=== PATIENT | female | born 1970 | race Caucasian/White ===

== ENCOUNTER 2018-03-02 10:38 | Emergency (ER) | payer OTHER ==
[2018-03-02] MEDS ORDERED: Sodium Chloride 0.9% 10 ML Syringe FLUSH PRN ×2 (11:13→11:22)
[2018-03-02] MEDS ORDERED: LORazepam 2 MG/ML SDV IVPUSH ONE (11:13)
[2018-03-02] MEDS ORDERED: Sodium Chloride 0.9% 1,000 ML IV ONE ×2 (11:23→11:24)
[2018-03-02] MEDS ORDERED: Ketorolac 15 MG/ML SDV IVPUSH ONE (11:35)
--- NOTE | 2018-03-02 11:43 | EDM.PDOC ---
ED HPI GENERAL MEDICAL PROBLEM - General Chief Complaint: Headache Stated Complaint: INFECTION Time Seen by Provider: 03/02/18 11:27 Source of Information: Reports: Patient, Family () History Limitations: Reports: No Limitations - History of Present Illness INITIAL COMMENTS - FREE TEXT/NARRATIVE: Patient is a 47-year-old female presents ED complaining of gradual onset of generalized headache that has intermittent shooting sharp pains from the right gnosticist across the top of her head. This started approximately one week ago. She had some UTI-like symptoms that resolved. She was seen in the [place] [facility] and had lab work done. She was diagnosed with UTI and placed on oral Cipro. Patient states last night had a temperature of 102 relieved with Tylenol and Motrin. She 's been taking the Tylenol and Motrin regularly in alternating fashion. She complains of some generalized body aches. No painful urination. No hematuria. No chest pain, shortness of breath, sore throat, vision changes, stiff neck, n/t , difficulty walking, or any additional complaints. 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 Currently she is off any pain medications except for Tylenol and Motrin. Pain pump is located in the right lower quadrant currently running saline. She states some of the characteristics of the headache she currently experiencing are similar to the previous episode of bacterial meningitis. Again she has no nuchal rigidity. Past medical history includes: Hypertension, hypothyroid some, COPD, neuropathy , GERD, and fibromyalgia Current medications include: metoprolol, levothyroxine, Advair, gabapentin, PPI , and Savella. Headache Pain Score (Numeric/FACES): 8 - Related Data Allergies Allergy/AdvReac Type Severity Reaction Status Date / Time acetaminophen Allergy Other Verified 08/27/16 07:22 [From Tylenol-Codeine] amitriptyline Allergy Other Verified 08/27/16 07:22 citric acid Allergy Other Verified 08/27/16 07:22 codeine Allergy Other Verified 08/27/16 07:22 [From Tylenol-Codeine] morphine AdvReac Nausea Verified 09/04/14 09:45 Home Meds: Home Meds Fluticasone Propionate [Flovent] 1 - 2 puff IH DAILY 03/02/18 [History] Fluticasone/Salmeterol [Advair 250-50 Diskus] 1 puff INH BID 03/02/18 [History] Gabapentin [Neurontin] 600 mg PO TID 03/02/18 [History] Levofloxacin [Levaquin] 750 mg PO DAILY #5 tab 03/02/18 [Rx] Levothyroxine 75 mcg PO ACBREAKFAST 03/02/18 [History] Metoprolol Succinate [Toprol XL 50mg] 50 mg PO BID 03/02/18 [History] Milnacipran HCl [Savella] 100 mg PO BID 03/02/18 [History] Pantoprazole [ProTONIX] 40 mg PO BID 03/02/18 [History] Past Medical History HEENT History: Reports: Impaired Vision Cardiovascular History: Reports: Hypertension Respiratory History: Reports: Asthma, Bronchitis, Recurrent Gastrointestinal History: Reports: GERD Neurological History: Reports: Migraines Endocrine/Metabolic History: Reports: Hypothyroidism Hematologic History: Reports: Iron Deficiency Other Hematologic History: High platelet count and Vitamin D deficiency - Infectious Disease History Infectious Disease History: Reports: Chicken Pox, Meningitis - Past Surgical History HEENT Surgical History: Reports: Tonsillectomy GI Surgical History: Reports: Cholecystectomy Other Musculoskeletal Surgeries/Procedures:: Foot surgeries- pain pump for foot pain Social & Family History - Family History Family Medical History: Noncontributory ED ROS GENERAL - Review of Systems Review Of Systems: ROS reveals no pertinent complaints other than HPI. - Physical Exam Exam: See Below Exam Limited By: No Limitations General Appearance: Alert, WD/WN, Moderate Distress Eye Exam: Bilateral Eye: EOMI (pain with eomi), Normal Inspection, Nystagmus ( none noted), PERRL, Vision Changes (none noted) Ears: Hearing Grossly Normal Nose: Normal Inspection Throat/Mouth: Normal Voice, No Airway Compromise Head Exam: Atraumatic, Normocephalic Neck: Normal Inspection, Supple, Non-Tender, Full Range of Motion Respiratory/Chest: No Respiratory Distress, Lungs Clear, Normal Breath Sounds, No Accessory Muscle Use, Chest Non-Tender Cardiovascular: Normal Peripheral Pulses, No Murmur, Tachycardia GI/Abdominal: Normal Bowel Sounds, Soft, Non-Tender, No Organomegaly, No Distention, Other (pain pump to the right lower quadrant with no pain present) Neuro Exam (Abbreviated): Alert, Oriented, CN II-XII Intact, Normal Cognition, No Motor/Sensory Deficits, Other (No facial droop, slurred speech, tongue deviation, pronator drift, and or nystagmus. No weakness discrepancies to the upper/lower extremities. Cerebellar fx intact: finger to nose, rapid alternating movements, and heal to levy. ) Back Exam: Normal Inspection Extremities: Normal Inspection, Normal Range of Motion, Non-Tender, No Pedal Edema, Normal Capillary Refill Psychiatric: Normal Affect, Normal Mood Skin Exam: Warm, Dry, Intact, Normal Color, No Rash Course - Vital Signs Last Recorded V/S: Last Vital Signs Temp 98.5 F 03/02/18 15:40 Pulse 92 03/02/18 15:40 Resp 16 03/02/18 15:40 BP 141/96 H 03/02/18 15:40 Pulse Ox 99 03/02/18 15:40 - Orders/Labs/Meds Orders: Active Orders 24 hr Category Date Time Status Peripheral IV Care [RC] . DIRECTED Care 03/02/18 11:13 Inactive Peripheral IV Care [RC] . DIRECTED Care 03/02/18 11:23 Active CULTURE BLOOD [BC] Stat Lab 03/02/18 11:30 Received CULTURE BLOOD [BC] Stat Lab 03/02/18 11:38 Received CULTURE URINE [RM] Stat Lab 03/02/18 12:28 Ordered Blood Culture x2 Reflex Set [OM.PC] Stat Oth 03/02/18 11:54 Ordered Peripheral IV Insertion Adult [OM.PC] Routine Oth 03/02/18 11:22 Ordered Labs: Laboratory Tests 03/02/18 03/02/18 03/02/18 Range/Units 11:30 11:30 11:38 WBC 9.87 (3.98-10.04) K/mm3 RBC 3.49 L (3.98-5.22) M/mm3 Hgb 10.5 L (11.2-15.7) gm/L Hct 31.8 L (34.1-44.9) % MCV 91.1 (79.4-94.8) fl MCH 30.1 (25.6-32.2) pg MCHC 33.0 (32.2-35.5) g/dl RDW Std Deviation 41.9 (36.4-46.3) fL Plt Count 388 H (182-369) K/mm3 MPV 9.5 (9.4-12.3) fl Neutrophils % (Manual) 70 H (40-60) % Band Neutrophils % 1 (0-10) % Lymphocytes % (Manual) 21 (20-40) % Atypical Lymphs % 0 % Monocytes % (Manual) 5 (2-10) % Eosinophils % (Manual) 3 (0.7-5.8) % Basophils % (Manual) 0 L (0.1-1.2) Platelet Estimate Adequate RBC Morph Comment Normal Sodium 139 (136-145) mEq/L Potassium 3.9 (3.5-5.1) mEq/L Chloride 105 (98-107) mEq/L Carbon Dioxide 26 (21-32) mEq/L Anion Gap 11.9 (5-15) BUN 9 (7-18) mg/dL Creatinine 1.0 (0.55-1.02) mg/dL Est Cr Clr Drug Dosing 59.41 mL/min Estimated GFR (MDRD) 59 (>60) mL/min BUN/Creatinine Ratio 9.0 L (14-18) Glucose 102 (74-106) mg/dL Lactic Acid 1.2 (0.4-2.0) mmol/L Calcium 9.4 (8.5-10.1) mg/dL Total Bilirubin 0.5 (0.2-1.0) mg/dL AST 82 H (15-37) U/L ALT 112 H (14-59) U/L Alkaline Phosphatase 312 H (46-116) U/L C-Reactive Protein 26.3 H* (<1.0) mg/dL Total Protein 7.2 (6.4-8.2) g/dl Albumin 2.6 L (3.4-5.0) g/dl Globulin 4.6 gm/dL Albumin/Globulin Ratio 0.6 L (1-2) HCG, Qual (NEGATIVE) Urine Color (Yellow) Urine Appearance (Clear) Urine pH (5.0-8.0) Ur Specific Ryder (1.005-1.030) Urine Protein (Negative) Urine Glucose (UA) (Negative) Urine Ketones (Negative) Urine Occult Blood (Negative) Urine Nitrite (Negative) Urine Bilirubin (Negative) Urine Urobilinogen (0.2-1.0) Ur Leukocyte Esterase (Negative) Urine RBC (0-5) /hpf Urine WBC (0-5) /hpf Ur Epithelial Cells (0-5) /hpf Urine Bacteria (FEW) /hpf Urine Mucus (FEW) /hpf 03/02/18 03/02/18 Range/Units 11:38 12:28 WBC (3.98-10.04) K/mm3 RBC (3.98-5.22) M/mm3 Hgb (11.2-15.7) gm/L Hct (34.1-44.9) % MCV (79.4-94.8) fl MCH (25.6-32.2) pg MCHC (32.2-35.5) g/dl RDW Std Deviation (36.4-46.3) fL Plt Count (182-369) K/mm3 MPV (9.4-12.3) fl Neutrophils % (Manual) (40-60) % Band Neutrophils % (0-10) % Lymphocytes % (Manual) (20-40) % Atypical Lymphs % % Monocytes % (Manual) (2-10) % Eosinophils % (Manual) (0.7-5.8) % Basophils % (Manual) (0.1-1.2) Platelet Estimate RBC Morph Comment Sodium (136-145) mEq/L Potassium (3.5-5.1) mEq/L Chloride (98-107) mEq/L Carbon Dioxide (21-32) mEq/L Anion Gap (5-15) BUN (7-18) mg/dL Creatinine (0.55-1.02) mg/dL Est Cr Clr Drug Dosing mL/min Estimated GFR (MDRD) (>60) mL/min BUN/Creatinine Ratio (14-18) Glucose (74-106) mg/dL Lactic Acid (0.4-2.0) mmol/L Calcium (8.5-10.1) mg/dL Total Bilirubin (0.2-1.0) mg/dL AST (15-37) U/L ALT (14-59) U/L Alkaline Phosphatase (46-116) U/L C-Reactive Protein (<1.0) mg/dL Total Protein (6.4-8.2) g/dl Albumin (3.4-5.0) g/dl Globulin gm/dL Albumin/Globulin Ratio (1-2) HCG, Qual Negative (NEGATIVE) Urine Color Yellow (Yellow) Urine Appearance Clear (Clear) Urine pH 7.0 (5.0-8.0) Ur Specific Ryder 1.015 (1.005-1.030) Urine Protein Negative (Negative) Urine Glucose (UA) Negative (Negative) Urine Ketones Negative (Negative) Urine Occult Blood Trace-lysed H (Negative) Urine Nitrite Negative (Negative) Urine Bilirubin Negative (Negative) Urine Urobilinogen 0.2 (0.2-1.0) Ur Leukocyte Esterase Trace H (Negative) Urine RBC 0-5 (0-5) /hpf Urine WBC 5-10 H (0-5) /hpf Ur Epithelial Cells Not seen (0-5) /hpf Urine Bacteria Few (FEW) /hpf Urine Mucus Not seen (FEW) /hpf Meds: Medications Discontinued Medications Generic Name Dose Route Start Last Admin Trade Name Freq PRN Reason Stop Dose Admin Diphenhydramine HCl 50 mg 03/02/18 14:22 03/02/18 14:33 Benadryl IVPUSH 03/02/18 14:23 50 mg ONETIME ONE Administration Haloperidol Lactate 5 mg 03/02/18 14:22 03/02/18 14:33 Haldol IVPUSH 03/02/18 14:23 5 mg ONETIME ONE Administration Sodium Chloride 1,000 mls @ 999 mls/hr 03/02/18 11:23 03/02/18 11:47 Normal Saline IV 03/02/18 12:23 999 mls/hr ONETIME ONE Administration Sodium Chloride 1,000 mls @ 999 mls/hr 03/02/18 11:24 03/02/18 13:36 Normal Saline IV 03/02/18 12:24 Not Given ONETIME ONE Levofloxacin/Dextrose 750 mg/ 150 mls @ 100 mls/hr 03/02/18 12:05 03/02/18 12 :35 Premix IV 03/02/18 13:34 100 mls/hr ONETIME ONE Administration Ketorolac Tromethamine 15 mg 03/02/18 11:35 03/02/18 11:52 Toradol IVPUSH 03/02/18 11:36 15 mg ONETIME ONE Administration Ketorolac Tromethamine 15 mg 03/02/18 14:22 03/02/18 14:33 Toradol IVPUSH 03/02/18 14:23 15 mg ONETIME ONE Administration Lorazepam 1 mg 03/02/18 11:13 Ativan IVPUSH 03/02/18 11:14 ONETIME ONE Sodium Chloride 10 ml 03/02/18 11:13 Saline Flush FLUSH ASDIRECTED PRN Keep Vein Open Sodium Chloride 10 ml 03/02/18 11:22 03/02/18 11:53 Saline Flush FLUSH 10 ml ASDIRECTED PRN Administration Keep Vein Open - Re-Assessments/Exams Free Text/Narrative Re-Assessment/Exam: Upon admission patients heart rate elevated 103 with a blood pressure 145/105. Temperature is 98.2. Patient has taken Motrin and Tylenol earlier this morning. Last took Motrin at 6:00 this morning. Per nursing staff patient does meet sepsis criteria. IV established with NS 2 liters bolus and toradol 15mg IVP. Initial labs and studies will include: CBC, chem 14, CRP, hCG, urine culture, UA , blood cultures 2, and lactic acid. 03/02/18 12:05 I have ordered levaquin 750mgs IV. Labs reviewed: CBC essentially normal. Hemoglobin mildly low at 10.5. Platelet count 388. Slight neutrophilia with no left shift. Chemistry panel elicited AST 82, ALT 112, alk phosphatase 312, CRP 26.3. HCG negative. UA trace occult blood, trace leukocyte Estrace, urine wbc's 5-10. I did order a urine culture. 1245 Reassessment: Patient resting comfortably in bed. Headache is improving. She is opening her eyes and states she is feeling much better. Labs have come back and are far better then expected. She has received 3 doses of cipro and appears to be working. She has received levaquin here in the E.D. I will discharge patient on levaquin and discontinue the cipro. 03/02/18 14:25 Reassessment, patient complaining of headache comingback. Right sided with jolts to the top of her head. Discussed abortive therapy for migraine. VSS. She is afebrile. No nuchal rigidity. She has elected to have abortive therapies. This will include benadryl, toradol, zofran, and haldol. 03/02/18 15:26 Per nursing staff patients headache is a 4/10. Patient is ready to be discharged home. Departure - Departure Time of Disposition: 15:26 Disposition: Home, Self-Care 01 Condition: Good Clinical Impression: Migraine, Elevated C-reactive protein (CRP), Elevated LFTs UTI (urinary tract infection) Qualifiers: Urinary tract infection type: site unspecified Hematuria presence: with hematuria Qualified Code(s): N39.0 - Urinary tract infection, site not specified - Discharge Information Prescriptions: Levofloxacin [Levaquin] 750 mg PO DAILY #5 tab Instructions: Migraine Headache, [id number], Antibiotic Medicine, Adult Referrals: Meagan Gilliam PA-C [Primary Care Provider] - Forms: ED Department Discharge Additional Instructions: As discussed will have you start taking Levaquin 1 tab every day for the next 5 days. Do not take the Cipro. Push the fluids. Utilize ibuprofen or Aleve for body aches and headache. Continue taking all your home medications as prescribed. Please follow up with your primary care provider 2 days at the conclusion of antibiotic therapy to ensure resolution. Return to the ED if you develop any new or worsening symptoms as discussed. Suggest going home and finding a dark room to sleep with no distractions. Suspect headache will continue to improve but if for some reason you develop increasing pain, vision changes, neurological changes, stiff neck, fever, please return back to ED. In addition CRP was quite elevated. This a nonspecific inflammatory marker that can be elevated for multitude of reasons. Believe its elevated with recent UTI. Thus repeat labs at conclusion of therapy on followup is suggested to ensure trending downward and also to check liver function tests. - My Orders Last 24 Hours: My Active Orders 03/02/18 11:13 Peripheral IV Care [RC] . DIRECTED 03/02/18 11:22 Peripheral IV Insertion Adult [OM.PC] Routine 03/02/18 11:23 Peripheral IV Care [RC] . DIRECTED 03/02/18 11:30 CULTURE BLOOD [BC] Stat 03/02/18 11:38 CULTURE BLOOD [BC] Stat 03/02/18 11:54 Blood Culture x2 Reflex Set [OM.PC] Stat 03/02/18 12:28 CULTURE URINE [] Stat - Assessment/Plan Last 24 Hours: My Active Orders 03/02/18 11:13 Peripheral IV Care [RC] . DIRECTED 03/02/18 11:22 Peripheral IV Insertion Adult [OM.PC] Routine 03/02/18 11:23 Peripheral IV Care [RC] . DIRECTED 03/02/18 11:30 CULTURE BLOOD [BC] Stat 03/02/18 11:38 CULTURE BLOOD [BC] Stat 03/02/18 11:54 Blood Culture x2 Reflex Set [OM.PC] Stat 03/02/18 12:28 CULTURE URINE [RM] Stat
[2018-03-02] MEDS ORDERED: Levofloxacin/Dextrose 5%-Water 750 MG in Premix Bag 1 BAG IV ONE (12:05)
[2018-03-02] MEDS ORDERED: Ketorolac 30 MG/ML SDV IVPUSH ONE (14:22)
[2018-03-02] MEDS ORDERED: Haloperidol Lactate 5 MG/ML SDV IVPUSH ONE (14:22)
[2018-03-02] MEDS ORDERED: diphenhydrAMINE 50 MG/ML SDV IVPUSH ONE (14:22)
[2018-03-02 16:03] VITALS: BP 141/96
== END 2018-03-02 15:40 | disposition home or self-care (01) ==
LOC: JD.ED 10:38
DX: G43.909 Migraine, unspecified, not intractable, without status migrainosus (principal); N39.0 Urinary tract infection, site not specified; R79.82 Elevated C-reactive protein (CRP); I10 Essential (primary) hypertension; J45.909 Unspecified asthma, uncomplicated; E03.9 Hypothyroidism, unspecified; Z88.8 Allergy status to other drugs, medicaments and biological substances; Z79.899 Other long term (current) drug therapy
CPT/HCPCS: 36415; 80053; 81001; 83605; 84703; 85007; 85027; 86140; 87040; 87086; 96361; 96365; 96366; 96375; 96376; 99284; J1200; J1630; J1885; J1956; J7040; J7050

== ENCOUNTER 2024-12-02 14:21 | Emergency (ER) | payer OTHER ==
[2024-12-02 15:05] LABS: BASOPHILS PERCENT AUTO 0.3 % (0.0-1.0); EOSINOPHILS ABSOLUTE AUTO 0.1 K/mm3 (0.0-0.4); EOSINOPHILS PERCENT AUTO 1.4 % (0.0-6.0); HEMATOCRIT 42.7 % (37.0-47.0); HEMOGLOBIN 14.4 gm/dl (12.0-16.0); IMMATURE GRAN ABSOLUTE AUTO 0.02 K/mm3 (0.00-0.05); IMMATURE GRAN PERCENT AUTO 0.3 % (0.0-0.4); LYMPHOCYTES ABSOLUTE AUTO 2.2 K/mm3 (1.0-4.8); LYMPHOCYTES PERCENT AUTO 34.1 % (24.0-44.0); MEAN CORPUSCULAR HEMOGLOBIN 30.8 pg (28.0-32.0); MEAN CORPUSCULAR HGB CONC 33.7 g/dl (32.0-36.0); MEAN CORPUSCULAR VOLUME 91.2 fl (83.0-99.0); MEAN PLATELET VOLUME 9.6 fl (9.4-12.3); MONOCYTES ABSOLUTE AUTO 0.6 K/mm3 (0.0-0.8); MONOCYTES PERCENT AUTO 8.6 % (0.0-8.0); NEUTROPHILS ABSOLUTE AUTO 3.5 K/mm3 (1.8-7.7); NEUTROPHILS PERCENT AUTO 55.3 % (41.0-71.0); PLATELET COUNT,PLT 334 K/mm3 (150-400); RED BLOOD CELL COUNT 4.68 M/mm3 (4.10-5.30); WHITE BLOOD CELL COUNT,WBC 6.39 K/mm3 (3.9-11.3)
[2024-12-02 15:28] LABS: A/G RATIO 1.2 (1-2); ALANINE AMINOTRANSFERASE,ALT 34 U/L (14-59); ALBUMIN 4.3 g/dl (3.4-5.0); ALKALINE PHOSPHATASE 86 U/L (46-116); ANION GAP 10.9 (5-15); ASPARTATE AMNIOTRANSFERASE,AST 21 U/L (15-37); BILIRUBIN TOTAL 0.4 mg/dL (0.2-1.0); BLOOD UREA NITROGEN,BUN 16 mg/dL (7-18); BUN/CREATININE RATIO 17.8 (14-18); CALCIUM 10.2 mg/dL (8.5-10.1); CARBON DIOXIDE,CO2 28 mEq/L (21-32); CHLORIDE,CL 106 mEq/L (98-107); CREATININE 0.9 mg/dL (0.55-1.02); EST CRCL DRUG DOSING (CG) 60.99 mL/min; ESTIMATED GFR 76 mL/min (>60); GLUCOSE RANDOM 104 mg/dL (70-99); POTASSIUM,K 4.9 mEq/L (3.5-5.1); SODIUM,NA 140 mEq/L (136-145)
[2024-12-02 15:30] LABS: TROPONIN I HIGH SENSITIVITY < 4 pg/mL (<=51)
[2024-12-02 17:46] VITALS: BP 145/97; PULSE 90
== END 2024-12-02 17:40 | disposition home or self-care (01) ==
LOC: JD.ED 14:21
DX: R55 Syncope and collapse (principal); I10 Essential (primary) hypertension; J45.909 Unspecified asthma, uncomplicated; E03.9 Hypothyroidism, unspecified; Z90.49 Acquired absence of other specified parts of digestive tract; Z88.5 Allergy status to narcotic agent; Z91.02 Food additives allergy status; Z88.8 Allergy status to other drugs, medicaments and biological substances; Z79.899 Other long term (current) drug therapy
CPT/HCPCS: 36415; 70450; 70450-26; 71045; 71045-26; 80053; 83880; 84484; 85025; 93005; 99285